=== PATIENT | male | born 2005 | race Caucasian/White ===

== ENCOUNTER 2024-12-11 17:09 | Emergency (ER) | payer OTHER, SELFPAY ==
--- NOTE | 2024-12-11 17:12 | ED.LOWEXIN ---
HPI - Extremity Injury (Lower) General Chief Complaint: Skin/Abscess/Foreign Body Stated Complaint: toe swelling/injury Time Seen by Provider: 12/11/24 17:22 Source: patient and RN notes reviewed Mode of arrival: ambulatory Limitations: dementia History of Present Illness HPI Narrative: 39-year-old male presents with concern for redness, swelling, pain at the base of the nail bed of the 1st digit of the right foot. Reports it has been there about a week. He reports that had some purulence drainage. He denies general malaise, fever, aches chills, sweats. He denies injury to the digit complaint: other Related Data Allergies Allergy/AdvReac Type Severity Reaction Status Date / Time No Known Allergies Allergy Verified 12/11/24 17:25 Review of Systems Review of Systems: CONSTITUTIONAL: Denies malaise, chills, sweats, or fever. SKIN: Reports redness, swelling, pain, purulent drainage to the base of the nail bed of the 1st digit of the right foot. Denies vesicles, bullae, numbness, pain beyond proportion MUSCULOSKELETAL: Denies joint pain or myalgia. All systems reviewed & are unremarkable except as noted in HPI and below PMFSH Comments At time of signature, agree with nursing past medical, surgical, social and family history. There is no relevant family history pertinent to the presenting complaint Exam Narrative: GENERAL: Well-appearing, well-nourished, and in no acute distress. HEAD: Normocephalic, atraumatic. EYES: PERRLA, conjunctivae clear ENT: Mucous membranes moist. NECK: Supple. No lymphadenopathy CHEST: Clear to auscultation. No respiratory distress. HEART: Regular rate and rhythm. SKIN: Warm, dry. Erythema, induration, tenderness, warmth scabbing with sharp margins noted at the base of the nail bed of the 1st digit of the right foot. No vesicles, bullae, necrosis, ecchymosis, crepitus noted. NEURO: Alert and oriented x3. PSYCH: Normal mood and affect Course Course Emergency Course: Patient is aware of diagnosis, understands and agrees to treatment plan. Anticipatory guidance given. Patient agrees to follow-up as directed and is aware of reasons to seek care at the emergency department. Portions of this record may have been created with voice recognition software Level of Care: Express Care Visit Vital Signs Vital signs: Reviewed. MDM - Extremity Injury (Lower) MDM Narrative Medical decision making narrative: I evaluated this patient in the [facility]. History is obtained from patient who is an independent historian and physical exam was performed.? Available medical records were reviewed. ? Exam findings show no acute concerns or changes; patient is non-toxic appearing and is in no distress. ? Differential diagnosis and treatment plan were discussed with the patient. Patient agrees with discussion and after shared medical decision making agrees with plan of care. All questions were answered to the patient's satisfaction. Patient is appropriate for outpatient treatment and follow-up. Critical Care Time Critical Care Time Critical Care Time: No Discharge Plan Discharge Clinical Impression: Paronychia Patient Disposition: Home Condition: Stable Instructions: Antibiotic Form, Paronychia (ED) Additional Instructions: Soak your nail: Soak your nail in a mixture of equal parts vinegar and water 3 or 4 times each day. This will help decrease inflammation. Apply a warm compress: Soak a washcloth in warm water and place it on your nail. This will help decrease inflammation. Elevate: Raise your nail above the level of your heart as often as you can. This will help decrease swelling and pain. Prop your nail on pillows or blankets to keep it elevated comfortably. Use lotion: Apply lotion after you wash your hands. This will prevent your skin from becoming too dry. Please follow-up with your primary care doctor in the next 1-2 days. If you cannot follow-up with your primary care doctor please go to the ED for any urgent issues. 2) If you have any worsening of symptoms or any other concerns please go to the ED immediately. 3) Please take medications as prescribed andcontinue taking your home medications as usual. Patient Language: Greenlandic Prescriptions: New sulfamethoxazole-trimethoprim 800-160 mg tablet 1 tablet PO Q12H 7 Days Qty: 14 0RF Follow-up/Referrals: UNKNOWN,DOCTOR [Primary Care Provider] - Time of Disposition: 17:31
--- OUTSIDE RECORDS SUMMARY | 2024-12-11 17:19 | XMS_ITS ---
Author Organization [facility] Address [address] [place] [address] Care Team Providers Care Male Model Name Role Phone Dr. Noel Romero Primary Care Provider [phone] Migration, Provider Unavailable Unavailable Allergies No Known Allergies REASON FOR VISIT EMR-Syed Encounters Encounter Location Date Provider Diagnosis [facility] [address] [place] [address] 05/02/2024 Provider Migration Plan Of Treatment No Information Progress Notes * Milton YEAGEROB:2005 (19 yo M)Acc No.[id number]:05/02/2024 Patient: Natan HAILE :2005 A ge:19 Y S ex:Male Address:[address] [facility], [facility] [address], [place], [address] Subjective: * Chief Complaints: * E MR-Syed * Allergies: N .K.D.A. * * Date:
--- OUTSIDE RECORDS SUMMARY | 2024-12-11 17:19 | XMS_ITS ---
Author Organization [facility] Address [address] [place] [address] Care Team Providers Care Plate Former Name Role Phone Dr. Noel Romero Primary Care Provider [phone] Migration, Provider Unavailable Unavailable REASON FOR VISIT EMR-Syed Encounters Encounter Location Date Provider Diagnosis [facility] [address] [place] [address] 05/01/2024 Provider Migration Plan Of Treatment Medication Medication Name Sig Start Date Stop Date Notes traMADol HCl 50 MG Tablet 1 Oral Q6H; Duration: 0 08/21/19 23 08/20/2022 Ibuprofen 600 MG Tablet 1 Oral three kathi es a day; Duration: 30 08/13/2022 10/11/2022 Progress Notes * Milton YEAGEROB:2005 (19 yo M)Acc No.[id number]:05/01/2024 Patient: Claudy MONTGOMERY Natan :2005 A ge:19 Y S ex:Male Address:[address] [place] [address], [place], [address] * Refills Stop traMADol HCl Tablet, 50 MG, Oral, 25, 1, Q6H, 0 Stop Ibuprofen Tablet, 600 MG, Oral, 90, 1, three times a day, 30 Subjective: * Chief Complaints: * E MR-Syed * * Date:
--- OUTSIDE RECORDS SUMMARY | 2024-12-11 17:19 | XMS_ITS | Patient Health Record ---
Author Organization Replaced By [facility] Address [address] [place] [address] Care Team Providers Care Shingle Packer Name Role Phone Dr. Noel Romero Primary Care Provider [phone] Migration, Provider Unavailable Unavailable Allergies No Known Allergies Reason For Referral No Information Immunizations Vaccine Route Administration Date Status Comme nts Meningococcal MCV4P IM Intramuscular 01/23/2021 Administer ed ,sourcename : New immunization record ,immstatus : Complete Problems Problem Type SNOMED Code ICD Code Onset Dates Problem Status W/U Status Risk Notes Problem History and physical examination, sports participation (procedure) (040988535) Encounter for examination for participation in sport (Z02.5) 03/14/20 16 Problem resolved confirmed Problem Sprain of ankle (53822121) Sprain of unspecified ligament of right ankle, initial encounter (S93.401A) 03/17/20 17 Problem resolved confirmed Problem Neck sprain (518822112) Sprain of ligaments of cervical spine, initial encounter (S13.4XXA) 03/06/20 16 Problem resolved confirmed Problem Arthralgia of the ankle and/or foot (454332764) Pain in right ankle and joints of right foot (M25.571) 03/17/20 17 Problem resolved confirmed Problem Concussion injury of brain (294647641) Unspecified concussion (850.9) 03/06/20 16 Problem resolved confirmed Problem Ankle sprain (57189528) Other ankle sprain and strain (845.09) 03/17/20 17 Problem resolved confirmed Problem Injury of blood vessels of upper extremity (42535971) Unspecified injury of unspecified blood vessel at shoulder and upper arm level, left arm, initial encounter (S45.902A) 07/19/19 22 Active confirmed Problem Concussion with no loss of consciousness (64417397) Concussion without loss of consciousness, subsequent encounter (S06.0X0D) 03/14/20 16 Problem resolved confirmed Problem Concussion with no loss of consciousness (89320369) Concussion without loss of consciousness, initial encounter (S06.0X0A) 03/06/20 16 Problem resolved confirmed Problem Neck sprain (786716820) Neck sprain and strain (847.0) 03/06/20 16 Problem resolved confirmed Problem History and physical examination, insurance (9418547) Encounter for examination for insurance purposes (Z02.6) 08/14/19 23 Active confirmed Problem Child health medical examination (844948494) Encounter for routine child health examination without abnormal findings (Z00.129) 01/24/20 21 Active confirmed Problem Injury of shoulder and upper arm (681137908) Unspecified injury of left shoulder and upper arm, subsequent encounter (S49.92XD) 08/21/19 23 Active confirmed Problem Injury of shoulder and upper arm (402778689) Unspecified injury of left shoulder and upper arm, initial encounter (S49.92XA) 08/14/19 23 Active confirmed Problem History and physical examination, administrative (20191225) Other general medical examination for administrative purposes (V70.3) 03/14/20 16 Active confirmed Problem Arthralgia of the ankle and/or foot (093460420) Pain in joint, ankle and foot (719.47) 03/17/20 17 Active confirmed Encounters Encounter Location Date Provider Diagnosis [facility] [address] [place] [address] 05/01/2024 Provider Migration [facility] [address] [place] [address] 05/02/2024 Provider Migration Plan Of Treatment No Information Insurance Providers Payer Name Payer Address Payer Phone Subscriber Number Group Number Insured Name Patient Relationship to Insured Coverage Start Date Coverage End Date [employer] [address] [address] [place] [address] [id number] [phone] Natan Joiner Self - patient is the insured [employer] [address] [address] [place] [address] [id number] Natan Joiner Self - patient is the insured 3
--- OUTSIDE RECORDS SUMMARY | 2024-12-11 17:19 | XMS_ITS | Clinical Summary ---
Author Organization [facility] Address [address] [place] [address] Care Team Providers Care Manager Marketing Sales Name Role Phone Kat Manzano MD Primary Care Provider Allergies No known active allergies Medications No known medications Active Problems No known active problems Social History Tobacco Use Types Packs/Day Years Used Date Smoking Tobacco: Never Smokeless Tobacco: Never Sex and Gender Information Value Date Recorded Sex Assigned at Not on file Legal Sex Male 7:58 AM CDT Gender Identity Not on file Sexual Orientation Not on file Last Filed Vital Signs Vital Sign Reading Time Taken Comments Blood Pressure 110/62 03/18/2019 4:38 PM CDT Pulse 84 03/18/2019 4:38 PM CDT Temperature 36.9 C (98.4 F) 03/18/2019 4:38 PM CDT Respiratory Rate 18 03/18/2019 4:38 PM CDT Oxygen Saturation 98% 03/18/2019 4:38 PM CDT Inhaled Oxygen Concentration - - Weight 65.3 kg (144 lb) 03/18/2019 4:38 PM CDT Height 170.2 cm (5' 7) 03/18/2019 4:38 PM CDT Body Mass Index 22.55 03/18/2019 4:38 PM CDT Plan of Treatment Health Maintenance Due Date Last Done Comments Annual Physical 2006 HPV Vaccines (1 - Male 3-dose series) 2018 Meningococcal B Vaccine (1 of 2 - Standard) 2019 Hepatitis C 2021 COVID-19 Vaccine (1 - season) 2024 DTaP, Tdap and Td Vaccines (7 - Td or Tdap) 01/16/2025 01/16/2015, 01/18/2009, 06/12/2004, Additional history exists Hepatitis B Vaccines Completed 2003, 2003, 2003, Additional history exists Pneumococcal Vaccine: Pediatrics (0 to 5 Years) and At-Risk Patients (6 to 49 Years) Aged Out 06/12/2004, 03/14/2004, 2003, Additional history exists No longer eligible based on patient's age to complete this topic Meningococcal Vaccine Aged Out 01/16/2015 No stacia cecy eligible based on patient's age to complete this topic RSV Immunizations Under 20 Months Aged Out No longer eligible based on patient's age to complete this topic Insurance [employer] OF [employer] on file Care Teams Manager Marketing Sales Relationship Specialty Start Date End Date Kat Manzano MD [address] [place] [address] PCP - General FAMILY PRACTICE 07/25/18
[2024-12-11 17:23] VITALS: BP 139/81; PULSE 80; RESP 18; TEMP 36.7; O2SAT 99
== END 2024-12-11 17:32 | disposition home or self-care (01) ==
PROVIDERS: Emergency Provider Nurse Practitioner
DX: L03.031 Cellulitis of right toe (principal)
CPT/HCPCS: 99203; G0463